=== PATIENT | female | born 1960 | race Caucasian/White ===

== ENCOUNTER 2019-11-30 09:58 | Observation (INO) ==
[2019-11-30] MEDS ORDERED: ONDANSETRON INJ 2 MG/ML 2 ML VIAL IV STA (10:13)
[2019-11-30] MEDS ORDERED: SODIUM CHLORIDE 0.9% 1000ML 1,000 ML IV SCH (10:15)
[2019-11-30] MEDS: fentaNYL citrate 100 MCG/2 ML VIAL IV PRN ×2 (10:26→12:34)
[2019-11-30 10:32] LABS: Basophils # (auto) 0.01 K/uL (0-0.2); Basophils % (auto) 0.2 %; Eosinophils # (auto) 0.07 K/uL (0-0.5); Eosinophils % (auto) 1.7 %; Hematocrit (blood only) 39.8 % (37-47); Hemoglobin 12.9 g/dL (12.0-16.0); Lymphocytes # (auto) 1.47 K/uL (1.2-3.4); Lymphocytes % (auto) 34.9 %; Mean Corpuscular Hemoglobin 30.1 pg (25-34); Mean Corpuscular Hgb Conc 32.4 g/dL (32-36); Mean Platelet Volume 10.7 fL (7.4-10.4); Monocytes % (auto) 7.1 %; Neutrophils # (auto) 2.36 K/uL (1.4-6.5); Neutrophils % (auto) 56.1 %; Platelet Count 214 K/uL (130-400); RDW Coefficient of Variation 12.7 % (11.5-14.5); RDW Standard Deviation 42.8 fL (36.4-46.3); Red Blood Count 4.28 M/uL (4.2-5.4); White Blood Count 4.21 K/uL (4.8-10.8)
[2019-11-30 10:37] LABS: iSTAT Creatinine 0.9 mg/dl (0.6-1.3); iSTAT Hemoglobin 12.6 g/dl (12.0-16.0); iSTAT Ionized Calcium 1.15 mmol/l (1.12-1.32); iSTAT Potassium 4.5 mmol/L (3.3-5.0)
[2019-11-30] MEDS ORDERED: IOVERSOL 100ml IV PRN (10:39)
--- NOTE | 2019-11-30 10:42 | Emergency Department Note ---
Impression & Plan Multiple fractures of ribs, Chest wall contusion, Abdominal contusion ED Provider Note NAME: CHEMA OCAMPO AGE: 59 SEX: F : 1960 ARRIVES VIA: Ambulance INFORMANT: Patient, ED PROVIDER(S): Williams Montiel DO CHIEF COMPLAINT: Chest pain HPI: The patient is a 59-year-old female who presented to the emergency department for an evaluation of chest pain. The patient states that she fell down approximately 3 steps prior to arrival. She arrived via ambulance. She has an IV in place but received no medication for pain because reportedly her blood pressure was low. She states she has very severe pain with any movement deep breathing or palpation over the right side of the chest. She denies having any abdominal pain rectal bleeding. She does complain of some shortness of breath. She denies having any lower extremity pain or neck pain. The patient does not take any blood thinners. She states this occurred prior to arrival. She states her pain is moderate to severe at this time. ROS: See above HPI for pertinent positives & negatives. A total of 10 systems reviewed and were otherwise negative. PAST MEDICAL HISTORY: See Below PAST SURGICAL HISTORY: See Below FAMILY HISTORY: See Below SOCIAL HISTORY: See Below HOME MEDICATIONS: See Below ALLERGIES: See Below VITALS: See Below PHYSICAL EXAMINATION: GENERAL: The patient is awake and alert. The patient is very anxious appearing and appears to be in severe pain. EYES: The conjunctivae are clear. The pupils are round and reactive. EARS, NOSE, MOUTH AND THROAT: The nose is without any evidence of any deformity. Mucous membranes are moist. Tongue is midline. NECK: The neck is nontender and supple. RESPIRATORY: Splinting respirations were noted. There was diminished breath sounds at the right base. CARDIOVASCULAR: Regular rate and rhythm noted there no murmurs rubs or gallops normal S1 normal S2. GASTROINTESTINAL: There is tenderness in the right upper quadrant. There is no guarding or rigidity. Abdomen is overall soft. BACK: No midline tenderness or or step-off noted range of motion in flexion extension as well as rotation no signs of muscle spasm noted MUSCULOSKELETAL/EXTREMITIES: There is no evidence of gross deformity full range of motion is noted in the hips and shoulders. There is significant tenderness on the right lateral chest wall. No crepitus was appreciated. SKIN: There is no obvious evidence of any rash. There are no petechiae, pallor or cyanosis noted. NEUROLOGIC: Patient is awake alert and oriented x3 strength is symmetric patellar reflexes are 2+ bilaterally MEDICAL DECISION MAKING: The patient is a 59-year-old female who presented to the emergency department for an evaluation of right-sided chest pain. The patient fell down multiple st airs. She was found to have multiple rib fractures on CT of the chest but no intra-abdominal pathology. The patient was treated with pain medication in the emergency department. She was reevaluated multiple times. She continued to have very severe pain. She was unable to ambulate without significant help. For this reason I discussed her case with the on-call [facility] hospitalist group. They have agreed to evaluate the patient in the emergency department for further management and disposition. I discussed the patient's laboratory and radiographic studies with her. Triage Nursing notes reviewed. Prior medical records reviewed Vital Signs: reviewed and remarkable for hypotension Differential diagnosis: Fracture, dislocation, contusion, intra-abdominal, pneumothorax, intrathoracic, intracranial, neurologic, compartment syndrome, rhabdomyolysis, as well as other pathologies. ER treatment provided: See below Diagnostics interpreted by me: ECG: none Cardiac Monitoring: An order was placed for continuous cardiac monitoring. The monitor shows a rate of 88 with sinus rhythm. Laboratory studies: As stated above and show below. Imaging studies: See below Consultation(s): 1340: I discussed this case with Dr. Arevalo ED COURSE: Procedures: none Critical Care: None Past Med/Surg History Social History Feels Safe at Home: Yes Allergies Allergies Allergy/AdvReac Type Severity Reaction Status Date / Time No Known Allergies Allergy Unverified 11/30/19 10:32 Home Meds Home Medications Medication Instructions Recorded Confirmed estradiol [Climara] 1 patch TOPICAL UD 11/30/19 11/30/19 progesterone micronized 100 mg PO UD 11/30/19 11/30/19 Results & Data (ED) Vital Signs Vital Signs - 24 hr 11/30/19 10:02 11/30/19 10:30 11/30/19 10:49 Temperature 36.7 C Temperature Source Oral Pulse Rate 56 L 71 Pulse Rate from SpO2 Sensor 70 Respiratory Rate 20 20 Respiratory Depth Normal Blood Pressure 103/54 L 88/61 L Blood Pressure Mean 70 66 Pulse Oximetry 99 94 90 Oxygen Delivery Method Room Air Room Air Sepsis Recent Fever Within 48 Hours No Sepsis New/Unexplained Change in Mental Status No Sepsis Action Taken by Nursing No Action Required 11/30/19 10:50 11/30/19 11:00 11/30/19 11:01 Temperature Temperature Source Pulse Rate 70 68 70 Pulse Rate from SpO2 Sensor 70 70 71 Respiratory Rate 18 20 22 Respiratory Depth Blood Pressure 95/69 L Blood Pressure Mean 74 Pulse Oximetry 91 99 95 Oxygen Delivery Method Sepsis Recent Fever Within 48 Hours Sepsis New/Unexplained Change in Mental Status Sepsis Action Taken by Nursing 11/30/19 11:30 11/30/19 11:31 11/30/19 12:00 Temperature Temperature Source Pulse Rate 64 64 63 Pulse Rate from SpO2 Sensor 63 65 62 Respiratory Rate 15 19 19 Respiratory Depth Blood Pressure 88/59 L 91/56 L Blood Pressure Mean 69 67 Pulse Oximetry 96 96 Oxygen Delivery Method Sepsis Recent Fever Within 48 Hours Sepsis New/Unexplained Change in Mental Status Sepsis Action Taken by Nursing 11/30/19 12:01 11/30/19 12:30 11/30/19 12:31 Temperature Temperature Source Pulse Rate 64 66 59 L Pulse Rate from SpO2 Sensor 63 67 61 Respiratory Rate 19 18 19 Respiratory Depth Blood Pressure 95/42 L Blood Pressure Mean 70 Pulse Oximetry 96 97 97 Oxygen Delivery Method Sepsis Recent Fever Within 48 Hours Sepsis New/Unexplained Change in Mental Status Sepsis Action Taken by Nursing 11/30/19 12:34 11/30/19 12:35 11/30/19 13:00 Temperature Temperature Source Pulse Rate 56 L 53 L 67 Pulse Rate from SpO2 Sensor 56 L 52 L 67 Respiratory Rate 16 21 15 Respiratory Depth Blood Pressure 97/60 L 93/59 L Blood Pressure Mean 67 70 Pulse Oximetry 98 97 97 Oxygen Delivery Method Sepsis Recent Fever Within 48 Hours Sepsis New/Unexplained Change in Mental Status Sepsis Action Taken by Nursing 11/30/19 13:01 Temperature Temperature Source Pulse Rate 67 Pulse Rate from SpO2 Sensor 67 Respiratory Rate 17 Respiratory Depth Blood Pressure Blood Pressure Mean Pulse Oximetry 97 Oxygen Delivery Method Sepsis Recent Fever Within 48 Hours Sepsis New/Unexplained Change in Mental Status Sepsis Action Taken by Nursing Laboratory Data Result diagrams: 11/30/19 10:20 11/30/19 11:17 Lab Results 11/30/19 11/30/19 11/30/19 Range/Units 10:20 10:20 10:20 WBC 4.21 L (4.8-10.8) K/uL RBC 4.28 (4.2-5.4) M/uL Hgb 12.9 (12.0-16.0) g/dL POC Hgb (12.0-16.0) g/dl Hct 39.8 (37-47) % POC Hct (37-47) % MCV 93.0 (80-100) fL MCH 30.1 (25-34) pg MCHC 32.4 (32-36) g/dL RDW Std Deviation 42.8 (36.4-46.3) fL RDW Coeff of Paola 12.7 (11.5-14.5) % Plt Count 214 (130-400) K/uL MPV 10.7 H (7.4-10.4) fL Immature Gran % (Auto) 0.0 % Neut % (Auto) 56.1 % Lymph % (Auto) 34.9 % [place] % (Auto) 7.1 % Eos % (Auto) 1.7 % Baso % (Auto) 0.2 % Neut # (Auto) 2.36 (1.4-6.5) K/uL Lymph # (Auto) 1.47 (1.2-3.4) K/uL [place] # (Auto) 0.30 (0.11-0.59) K/uL Eos # (Auto) 0.07 (0-0.5) K/uL Baso # (Auto) 0.01 (0-0.2) K/uL Immature Gran # (Auto) 0.00 (0.00-0.02) K/uL PT 10.9 (9.0-12.0) Seconds INR 1.0 (0.9-1.1) APTT 21.4 (21.0-31.0) Seconds PTT Ratio 0.8 POC Sodium (135-144) mmol/L Sodium 142 (136-145) mmol/L POC Potassium (3.3-5.0) mmol/L Potassium (3.5-5.1) mmol/L POC Chloride (101-112) mmol/L Chloride 111 H (98-107) mmol/L Carbon Dioxide 27 (21-32) mmol/L POC Total CO2 (24-31) mmol/L Anion Gap 4.0 (3-11) POC Anion Gap (16-25) mmol/L POC BUN (7-18) mg/dl BUN 19 H (7-18) mg/dl Creatinine 0.89 (0.6-1.2) mg/dl POC Creatinine (0.6-1.3) mg/dl Est Cr Clr Drug Dosing 65.8 ml/min Est GFR ( Amer) 81.6 Est GFR (Non-Af Amer) 70.4 BUN/Creatinine Ratio 21.6 H (10-20) Glucose 101 H (70-99) mg/dl POC Glucose (other) (70-99) mg/dl Calcium 8.8 (8.5-10.1) mg/dl POC Ioniz Calcium Lance (1.12-1.32) mmol/l Total Bilirubin 1.3 H (0.2-1) mg/dl AST (15-37) U/L ALT 23 (12-78) U/L Alkaline Phosphatase 57 (45-117) U/L Total Protein 6.4 (6.4-8.2) gm/dl Albumin 3.4 (3.4-5.0) gm/dl Globulin 3.0 (2.5-4.0) gm/dl Albumin/Globulin Ratio 1.1 (0.9-2) Lipase 95 (73-393) U/L Urine Color Urine Appearance (Clear) Urine pH (4.5-7.5) Ur Specific [place] (1.000-1.030) Urine Protein (Negative) Urine Glucose (UA) (Negative) Urine Ketones (Negative) Urine Blood (Negative) Urine Nitrite (Negative) Urine Bilirubin (Negative) Urine Urobilinogen (Negative) Ur Leukocyte Esterase (Negative) Urine WBC (Auto) (0-5) /hpf Urine RBC (Auto) (0-4) /hpf U Hyaline Cast (Auto) (0-5) /lpf U Epithel Cells (Auto) (0-5) /lpf Urine Bacteria (Auto) (Negative) 11/30/19 11/30/19 11/30/19 Range/Units 10:25 11:17 12:15 WBC (4.8-10.8) K/uL RBC (4.2-5.4) M/uL Hgb (12.0-16.0) g/dL POC Hgb 12.6 (12.0-16.0) g/dl Hct (37-47) % POC Hct 37 (37-47) % MCV (80-100) fL MCH (25-34) pg MCHC (32-36) g/dL RDW Std Deviation (36.4-46.3) fL RDW Coeff of Paola (11.5-14.5) % Plt Count (130-400) K/uL MPV (7.4-10.4) fL Immature Gran % (Auto) % Neut % (Auto) % Lymph % (Auto) % [place] % (Auto) % Eos % (Auto) % Baso % (Auto) % Neut # (Auto) (1.4-6.5) K/uL Lymph # (Auto) (1.2-3.4) K/uL [place] # (Auto) (0.11-0.59) K/uL Eos # (Auto) (0-0.5) K/uL Baso # (Auto) (0-0.2) K/uL Immature Gran # (Auto) (0.00-0.02) K/uL PT (9.0-12.0) Seconds INR (0.9-1.1) APTT (21.0-31.0) Seconds PTT Ratio POC Sodium 141 (135-144) mmol/L Sodium (136-145) mmol/L POC Potassium 4.5 (3.3-5.0) mmol/L Potassium 4.5 (3.5-5.1) mmol/L POC Chloride 104 (101-112) mmol/L Chloride (98-107) mmol/L Carbon Dioxide (21-32) mmol/L POC Total CO2 26 (24-31) mmol/L Anion Gap (3-11) POC Anion Gap 16.0 (16-25) mmol/L POC BUN 25 H (7-18) mg/dl BUN (7-18) mg/dl Creatinine (0.6-1.2) mg/dl POC Creatinine 0.9 (0.6-1.3) mg/dl Est Cr Clr Drug Dosing ml/min Est GFR ( Amer) Est GFR (Non-Af Amer) BUN/Creatinine Ratio (10-20) Glucose (70-99) mg/dl POC Glucose (other) 104 H (70-99) mg/dl Calcium (8.5-10.1) mg/dl POC Ioniz Calcium Lance 1.15 (1.12-1.32) mmol/l Total Bilirubin (0.2-1) mg/dl AST 17 (15-37) U/L ALT (12-78) U/L Alkaline Phosphatase (45-117) U/L Total Protein (6.4-8.2) gm/dl Albumin (3.4-5.0) gm/dl Globulin (2.5-4.0) gm/dl Albumin/Globulin Ratio (0.9-2) Lipase (73-393) U/L Urine Color Yellow Urine Appearance Clear (Clear) Urine pH 7.5 (4.5-7.5) Ur Specific [place] > 1.045 H (1.000-1.030) Urine Protein Negative (Negative) Urine Glucose (UA) Negative (Negative) Urine Ketones Trace H (Negative) Urine Blood Negative (Negative) Urine Nitrite Negative (Negative) Urine Bilirubin Negative (Negative) Urine Urobilinogen Negative (Negative) Ur Leukocyte Esterase Negative (Negative) Urine WBC (Auto) 1-5 (0-5) /hpf Urine RBC (Auto) 0-4 (0-4) /hpf U Hyaline Cast (Auto) 1-5 (0-5) /lpf U Epithel Cells (Auto) 20-30 H (0-5) /lpf Urine Bacteria (Auto) Negative (Negative) Administered Medications Fentanyl Citrate (Fentanyl Citrate) 50 mcg IV Q15M PRN PRN Reason: Pain Stop: 12/14/19 10:12 Last Admin: 11/30/19 12:34 Dose: 50 mcg Documented by: [id number] Admin: 11/30/19 10:26 Dose: 100 mcg Documented by: [id number] Ioversol (Optiray 320 100ml) 94 ml IV ONCE PRN PRN Reason: Interaction Checking Stop: 12/04/19 10:38 Last Admin: 11/30/19 10:39 Dose: 94 ml Documented by: [id number] Discontinued Medications Sodium Chloride (Nss 1000ml) 1,000 mls @ 999 mls/hr IV .Q1H1M ROSENDA Stop: 11/30/19 11:15 Last Infusion: 11/30/19 11:51 Dose: 0 mls/hr Documented by: [id number] Admin: 11/30/19 10:26 Dose: 999 mls/hr Documented by: [id number] Ondansetron HCl (Zofran) 4 mg IV NOW STA Stop: 11/30/19 10:14 Last Admin: 11/30/19 10:25 Dose: 4 mg Documented by: [id number] Discharge Plan Visit Data Chief Complaint: Fall ED Provider: Williams Montiel Discharge Problem: Multiple fractures of ribs, Chest wall contusion, Abdominal contusion Patient Disposition: Being Evaluated by Hospitalist Condition: Good Forms Stand Alone Forms: My [facility] [employer] Prescriptions Prescriptions: No Action progesterone micronized 100 mg capsule 100 mg PO UD RF: 0 estradiol [Climara] 0.0375 mg/24 hr patch weekly 1 patch topical UD RF: 0 Referrals Referrals: PCP,NO [Primary Care Provider] -
[2019-11-30 10:46] LABS: Partial Thromboplastin Ratio 0.8; Partial Thromboplastin Time 21.4 Seconds (21.0-31.0); Prothrombin Time 10.9 Seconds (9.0-12.0)
[2019-11-30 10:50] LABS: Albumin Level 3.4 gm/dl (3.4-5.0); BUN Creatinine Ratio 21.6 (10-20); Calcium 8.8 mg/dl (8.5-10.1); Creatinine Clr Calc Pharmacy 65.8 ml/min; Est GFR (African American) 81.6; Est GFR (Non-African American) 70.4
[2019-11-30 10:55] LABS: Albumin Globulin Ratio 1.1 (0.9-2); Bilirubin,Total 1.3 mg/dl (0.2-1); Total Protein 6.4 gm/dl (6.4-8.2)
--- NOTE | 2019-11-30 10:55 | CT Scan Report ---
CT abd pelvis IV con only CLINICAL HISTORY: Abdominal and chest pain status post trauma COMPARISON STUDY: None. TECHNIQUE: Patient was scanned in a dynamic helical fashion during intravenous administration of 64 c c of Optiray 320. A dose lowering technique was utilized adhering to the principles of ALARA. CT DOSE: FINDINGS: Lower chest: There are basilar atelectatic changes. In addition there are minor right lower lobe airs pace opacities. These could be atelectatic infectious/inflammatory or secondary to a contusion. Liver: There is a 3 mm right lobe hepatic hypodensity likely representing a cyst. There is no evidenc e of acute hepatic injury. Gallbladder: Unremarkable. Spleen: Normal in size and attenuation. Pancreas: Unremarkable. Adrenal glands: Unremarkable. Kidneys: A 7 mm right renal cyst. There is no evidence of acute renal injury Bowel: There are no transition zones indicate bowel obstruction. There is no pathologic interloop flu id. There are no extraluminal gas collections. No acute inflammatory changes are visualized. The appe ndix appears normal. Peritoneum: There is no intraperitoneal free air or abdominal ascites. Vasculature: The abdominal aorta is normal in course and caliber. Adenopathy: None. Pelvic viscera: The bladder, and pelvic viscera are unremarkable. Skeletal structures: There are acute fractures of the right 12th 10 and ninth ribs. There is subcutan eous gas within the right chest wall. IMPRESSION: 1. No evidence of acute intra-abdominal or pelvic injury 2. Acute fractures of the right ninth 10th and 12th ribs with associated subcutaneous emphysema 3. Nonspecific right basilar airspace opacities, likely atelectatic or secondary to pulmonary contusi on ACT 112: Negative or not required by law. Electronically signed by: Chucho Chairez M.D. 11/30/2019 10:53 AM
--- NOTE | 2019-11-30 11:03 | CT Scan Report ---
CT OF THE CHEST WITH IV CONTRAST CLINICAL HISTORY: fall, right chest pain COMPARISON STUDY: No previous studies for comparison. TECHNIQUE: Following IV administration of 94 mL of Optiray-320, helical axial images of the chest we re obtained. Sagittal and coronal reconstructions were viewed as well as maximal intensity projectio ns on an independent 3-D workstation. Automated exposure control was utilized for the study. A dose lowering technique was utilized adhering to the principles of ALARA. CT DOSE: 501.57 mGy.cm FINDINGS: There is no evidence for traumatic injury to the thoracic aorta. Right atrial dilatation i s noted. Heart is mildly enlarged. There is no pericardial effusion. No enlarged thoracic lymph nodes are noted. There is no mediastinal hematoma. Note is made of a 1.5 cm left apical lucency. There is no right pneumothorax. Note is made of moderate groundglass opacity within the right lower lobe. Ther e is mild groundglass opacity within left lower lobe. There are acute nondisplaced fractures of the p osterior right ninth, 10th, 11th ribs. There is a mildly displaced fracture of the posterior right 12 th rib. There are acute minimally displaced fractures of the lateral right ninth and 10th ribs. No ac frandy thoracic spine fracture is noted. The abdomen and pelvis will be reported separately. IMPRESSION: 1. No evidence for traumatic injury to the thoracic aorta. 2. Acute mildly displaced fractures of the lateral right ninth and 10th ribs and the posterior right 12th rib. Acute nondisplaced fractures of the posterior right ninth through 11th ribs. No right pneum othorax. 3. Right lower lobe ground glass opacity which may reflect contusion or atelectasis. 4. 1.5 cm left apical lucency. A bleb is favored however a trace pneumothorax could appear similar. N o acute left rib fractures identified. ACT 112: Negative or not required by law. Electronically signed by: Franco Draper M.D. 11/30/2019 11:02 AM
[2019-11-30 11:38] LABS: Potassium 4.5 mmol/L (3.5-5.1)
[2019-11-30 12:28] LABS: Appearance Urine Clear (Clear); Bacteria Urine Automated Negative (Negative); Bilirubin Urine Negative (Negative); Blood Urine Negative (Negative); Color Urine Yellow; Epithelial Cell Urine Auto 20-30 /lpf (0-5); Glucose Urine UA Negative (Negative); Ketones Urine Trace (Negative); Leukocyte Esterase Urine Negative (Negative); Nitrite Urine Negative (Negative); RBC Urine Automated 0-4 /hpf (0-4); Specific Gravity Urine > 1.045 (1.000-1.030); Urobilinogen Urine Negative (Negative); pH Urine 7.5 (4.5-7.5)
[2019-11-30 12:53] LABS: Protein Urine Negative (Negative); Sulfosalicylic Acid Urine Negative (Negative)
[2019-11-30] MEDS ORDERED: SODIUM CHLORIDE 0.9% 500 ML IV ONE (13:54)
--- NOTE | 2019-11-30 14:04 | History & Physical Report ---
Date of Service November 30, 2019 Assessment & Plan (1) Multiple fractures of ribs: Patient will need pain control and physical and Occupational Therapy with concerns for evaluation for mobility IMPRESSION: 1. No evidence for traumatic injury to the thoracic aorta. 2. Acute mildly displaced fractures of the lateral right ninth and 10th ribs and the posterior right 12th rib. Acute nondisplaced fractures of the posterior right ninth through 11th ribs. No right pneumothorax. 3. Right lower lobe ground glass opacity which may reflect contusion or atelectasis. 4. 1.5 cm left apical lucency. A bleb is favored however a trace pneumothorax could appear similar. No acute left rib fractures identified. given ct scan will have repeat CXR in am 11/30 to eval for pneumothorax (2) Abdominal contusion: CT abdomen/pelvis IMPRESSION: 1. No evidence of acute intra-abdominal or pelvic injury 2. Acute fractures of the right ninth 10th and 12th ribs with associated subcutaneous emphysema 3. Nonspecific right basilar airspace opacities, likely atelectatic or secondary to pulmonary contusion (3) DVT prophylaxis: scd History of Present Illness Primary Care Provider: NO PCP 59-year-old female who presented to the emergency department by EMS for an evaluation of chest pain. The patient states that she fell down approximately 3 steps prior to arrival. She received no medication for pain because reportedly her blood pressure was low. She has very severe pain with any movement deep breathing or palpation over the right side of the chest. She denies having any abdominal pain rectal bleeding. She does complain of some shortness of breath. She denies having any lower extremity pain or neck pain. The patient does not take any blood thinners. She states this occurred prior to arrival. She states her pain is moderate to severe at this time. Allergies Allergy/AdvReac Type Severity Reaction Status Date / Time No Known Allergies Allergy Unverified 11/30/19 10:32 Home Medications Home Medications Medication Instructions Recorded Confirmed Type estradiol [Climara] 1 patch TOPICAL UD 11/30/19 11/30/19 History progesterone micronized 100 mg PO UD 11/30/19 11/30/19 History Past Med/Surg History Social History Smoking Status: Former smoker Feels Safe at Home: Yes Review of Systems Review of Systems: Mild distress and fatigue no headache, blurry or double vision no speech or swallowing issues right sided chest wall pain, no pressure or palpitations no shortness of breath, cough or wheezes no abdominal pain, nausea or vomiting, diarrhea or constipation no dysuria, hematuria or frequency no focal joint pain or swelling no back pain, CVA tenderness or radicular pain no visible bruising, bleeding or rashes no focal signs of weakness or numbness or altered sensation no complaints or anxiety or depression Physical Exam Physical Exam: The patient appeared well nourished and normally developed. Vital signs as documented. Head exam is normocephalic atraumatic no scleral icterus Neck is without JVD, thyromegaly, or carotid bruits. Lungs are clear to auscultation, no focal loss of breath sounds Cardiac exam, Rhythm is regular.. No murmurs, rubs or gallops. Abdominal exam reveals normal bowel sounds, soft non tender, no masses Extremities are nonedematous and both pedal pulses are normal. Neurologic exam is alert and oriented, no focal loss of strength or sensation Skin is without bruises or rashes Psychologically is without concerns for anxiety or depression Results & Data Results & Data ([facility]) Vital Signs (Past 12 Hours) Vital Signs Temp Pulse Resp BP Pulse Ox 11/30/19 13:31 62 17 96 11/30/19 13:30 63 17 85/50 L 97 11/30/19 13:01 67 17 97 11/30/19 13:00 67 15 93/59 L 97 11/30/19 12:35 53 L 21 97 11/30/19 12:34 56 L 16 97/60 L 98 11/30/19 12:31 59 L 19 97 11/30/19 12:30 66 18 95/42 L 97 11/30/19 12:01 64 19 96 11/30/19 12:00 63 19 91/56 L 96 11/30/19 11:31 64 19 11/30/19 11:30 64 15 88/59 L 96 11/30/19 11:01 70 22 95 11/30/19 11:00 68 20 95/69 L 99 11/30/19 10:50 70 18 91 11/30/19 10:49 71 20 88/61 L 90 11/30/19 10:30 94 11/30/19 10:02 98.1 F 56 L 20 103/54 L 99 PG Care Time/CCT Total # of Minutes Spent Total Time Spent with Patient: Total time spent is greater than 50% in coordination of care (as documented) at patient's floor/unit and/or counseling patient: Coding Level of Care Code 54259 OBS Care - Level 2 Diagnoses Multiple fractures of ribs S22.41XA Encounter type: initial encounter Fracture type: closed Laterality: right Abdominal contusion S30.1XXA Encounter type: initial encounter DVT prophylaxis Z29.9 (1) Multiple fractures of ribs Encounter type: initial encounter Fracture type: closed Laterality: right Qualified Code(s): S22.41XA - Multiple fractures of ribs, right side, initial encounter for closed fracture (2) Abdominal contusion Encounter type: initial encounter Qualified Code(s): S30.1XXA - Contusion of abdominal wall, initial encounter
[2019-11-30] MEDS ORDERED: OXYCODONE HCL IR 5 MG TAB (IMMEDIATE RELEASE) PO PRN (15:50)
[2019-11-30] MEDS ORDERED: MoRPHine SULFATE 2 MG/ML CARP IV PRN (15:50)
[2019-11-30] MEDS ORDERED: MoRPHine SULFATE 4 MG/ML 1 ML CARP\\VIAL IV PRN (15:50)
[2019-11-30] MEDS: ACETAMINOPHEN 500 MG TAB PO SCH ×2 (16:46→23:26)
[2019-11-30] MEDS ORDERED: LIDOCAINE 5% 1 PATCH TD SCH (17:00)
[2019-12-01 06:12] LABS: Hematocrit (blood only) 39.4 % (37-47); Hemoglobin 12.8 g/dL (12.0-16.0); Mean Corpuscular Hemoglobin 30.9 pg (25-34); Mean Corpuscular Hgb Conc 32.5 g/dL (32-36); Mean Corpuscular Volume 95.2 fL (80-100); Mean Platelet Volume 10.6 fL (7.4-10.4); Platelet Count 233 K/uL (130-400); RDW Coefficient of Variation 12.8 % (11.5-14.5); RDW Standard Deviation 44.5 fL (36.4-46.3); Red Blood Count 4.14 M/uL (4.2-5.4); White Blood Count 5.87 K/uL (4.8-10.8)
[2019-12-01 06:50] LABS: BUN Creatinine Ratio 17.5 (10-20); Calcium 8.6 mg/dl (8.5-10.1); Creatinine Clr Calc Pharmacy 69.7 ml/min; Est GFR (African American) 87.6; Est GFR (Non-African American) 75.5; Potassium 3.8 mmol/L (3.5-5.1)
--- NOTE | 2019-12-01 08:42 | XRay Report ---
XR chest 2V PA/lateral CLINICAL HISTORY: eval for pneumothorax or effusion COMPARISON STUDY: No previous studies for comparison. FINDINGS: Small right pleural effusion. Slight blunting left lateral costophrenic angle. Lungs otherw ise appear clear. Minimal atelectasis right base. IMPRESSION: Minimal atelectasis right base associated with a very small right effusion. ACT 112: Negative or not required by law. The above report was generated using voice recognition software. It may contain grammatical, syntax or spelling errors. Electronically signed by: Rene Ma M.D. 12/01/2019 8:41 AM
[2019-12-01] MEDS: ACETAMINOPHEN 500 MG TAB PO SCH (09:19)
--- NOTE | 2019-12-01 17:45 | Discharge Summary ---
Date of Service December 01, 2019 Admission HPI Per Admitting Provider 59-year-old female who presented to the emergency department by EMS for an evaluation of chest pain. The patient states that she fell down approximately 3 steps prior to arrival. She received no medication for pain because reportedly her blood pressure was low. She has very severe pain with any movement deep breathing or palpation over the right side of the chest. She denies having any abdominal pain rectal bleeding. She does complain of some shortness of breath. She denies having any lower extremity pain or neck pain. The patient does not take any blood thinners. She states this occurred prior to arrival. She states her pain is moderate to severe at this time. Principal Diagnosis 1)Right rib fractures 9 through 12 2)Right chest wall contusion 3)Abdominal wall contusion Discharge Exam The patient appeared well she is having very little pain and did move without much difficulty Vital signs as documented. Lungs she does have some pain to deep inspiration respiratory stephanie appeared unlabored. Neurologic exam is alert and oriented, no focal loss of strength or sensation Psychologically is without concerns for anxiety or depression Discharge Data Allergies Allergy/AdvReac Type Severity Reaction Status Date / Time No Known Allergies Allergy Unverified 11/30/19 10:32 Consultations 11/30/19 13:22 ED Decision to Admit Stat 11/30/19 15:50 Consult Case Management - Discharge Planning Routine Ordered Studies 11/30/19 10:13 CT abd pelvis IV con only Stat CT chest w con Stat Hospital Course (1) Multiple fractures of ribs: Patient mobility is good she will be home on scheduled Tylenol topical Lidoderm and PRN oxycodone IMPRESSION: 1. No evidence for traumatic injury to the thoracic aorta. 2. Acute mildly displaced fractures of the lateral right ninth and 10th ribs and the posterior right 12th rib. Acute nondisplaced fractures of the posterior right ninth through 11th ribs. No right pneumothorax. 3. Right lower lobe ground glass opacity which may reflect contusion or atelectasis. 4. 1.5 cm left apical lucency. A bleb is favored however a trace pneumothorax could appear similar. No acute left rib fractures identified. repeat CXR in am 11/30 negative l for pneumothorax (2) Abdominal contusion: CT abdomen/pelvis no further pain or discomfort IMPRESSION: 1. No evidence of acute intra-abdominal or pelvic injury 2. Acute fractures of the right ninth 10th and 12th ribs with associated subcutaneous emphysema 3. Nonspecific right basilar airspace opacities, likely atelectatic or secondary to pulmonary contusion Total Time Total Time Spent Total Time Spent (In Minutes): It required greater than 30 minutes to prepare this patient for discharge, majority of time was spent bedside counseling with the patient regarding medications pain control and appropriate limitations of physical activity Discharge Plan Discharge Items Patient Disposition: Home - Self-Care Reason For Visit: RIB FX Discharge Diagnosis: right rib fractures 9-12 Condition on Discharge: Good Activity: Per Instructions section Activity Comment: slowly increase activity Non-emergency contact: Primary Care Provider Call non-emergency contact if: you have any medication questions Follow-up/Referrals: PCP,NO [Primary Care Provider] - Diet: Regular Addtl Attending Provider Instructions: if your ribs become painful reduce your activity if you feel that you are noticeably more short of breath please have yourself re evaluated by an health care provider take tylenol 1000mg three times a day until you have full day without pain then reduce to as needed if the Rx for lido derm is with too high a co pay, try the over the counter version they are only slightly less potent, similarly use the patches, if you have a full day without pain, you can try a day without Pending Studies at Discharge: No Stand-Alone Forms: My [facility], Smoking Cessation Medications and DC Order Prescriptions: New oxycodone 5 mg Tablet 10 mg PO Q6H PRN (Reason: pain) Qty: 20 RF: 0 lidocaine 5 % Adhesive Patch,Medicated 1 patch transdermal Q24H Qty: 15 RF: 0 Continued progesterone micronized 100 mg capsule 100 mg PO UD RF: 0 estradiol [Climara] 0.0375 mg/24 hr patch weekly 1 patch topical UD RF: 0 Discharge Orders: Discharge Order (Routine); Ordered 12/01/19 Ordered By: Yash Barraza/Other Patient Handouts: ED Rib Fracture Admission Data Admit Date/Time: 11/30/19 14:14 Attending Provider: Yash Guevara Admit Provider: Yash Guevara Primary Care Provider: PCP,NO Other Providers: Yash Guevara Other Interventions: Discharge Summary Assessment (RN) Last Done: 12/01/19 12:08 DC Date/Time DO NOT enter until pt leaves facility: 12/01/19 14:45 Coding Level of Care Code D/C Day Management >30 mins Diagnoses Multiple fractures of ribs S22.41XA Encounter type: initial encounter Fracture type: closed Laterality: right Abdominal contusion S30.1XXA Encounter type: initial encounter
== END 2019-12-01 14:45 | disposition home or self-care (01) ==
LOC: 3W 09:58 → ED 09:58 → 3W 15:28